=== PATIENT | male | born 1995 | race Caucasian/White ===

== ENCOUNTER 2019-12-11 03:51 | Inpatient (IN) | payer BC ==
[2019-12-11] MEDS ORDERED: SODIUM CHLORIDE 0.9% 1000ML 1,000 ML IVS ONE (04:14)
[2019-12-11] MEDS ORDERED: DEXAMETHASONE INJ 10 MG/ML VIAL IV ONE (04:14)
--- NOTE | 2019-12-11 04:19 | ED.PDOC ---
History of Present Illness - General Chief Complaint: Respiratory Problem Stated Complaint: SOB, cough, COVID + Time Seen by Provider: 12/11/19 04:10 Source: patient, RN notes reviewed, Vital Signs reviewed Exam Limitations: no limitations - History of Present Illness Initial Comments: 24 yo male with no pmh comes in with c/c of sob. Patient was diagnosed with covid 8 days ago, has been symptomatic for 11 days. Works as EMT. +cough, sob, n/v. + fever. no chest pain. past two nights has not been able to sleep due to coughing. so came in for evaluation. Timing/Duration: constant Allergies/Adverse Reactions: Allergies NO KNOWN ALLERGY Allergy (Verified 12/11/19 04:16) Review of Systems - Review of Systems Constitutional: States: fever, malaise. Denies: chills EENTM: Denies: nose congestion, throat swelling, mouth swelling Respiratory: States: cough, short of breath Cardiology: Denies: chest pain, palpitations Gastrointestinal/Abdominal: States: nausea, vomiting. Denies: abdominal pain Musculoskeletal: Denies: back pain, muscle pain, neck pain Skin: Denies: rash Neurological: Denies: headache, numbness, paresthesia, tingling, tremors, weakness Endocrine: Denies: unexplained weight gain, unexplained weight loss Hematologic/Lymphatic: Denies: easy bleeding, easy bruising Past Medical History (General) - Patient Medical History Hx Seizures: No Hx Stroke: No Hx Dementia: No Hx Asthma: No Hx of COPD: No Hx Cardiac Disorders: No Hx Congestive Heart Failure: No Hx Pacemaker: No Hx Hypertension: No Hx Thyroid Disease: No Hx Diabetes: No Hx Gastroesophageal Reflux: No Hx Renal Disease: No Hx Cancer: No Hx of HIV: No Hx Hepatitis B: No Hx Hepatitis C: No Hx MRSA: No Hx Other PMH: No - Social History Hx Tobacco Use: No Hx Alcohol Use: No Hx Substance Use: No Hx Substance Use Treatment: No Family Medical History - Family History Mother Family History: Unknown Physical Exam - Physical Exam General Appearance: Alert, Comfortable, No apparent distress, Well Developed, Well Groomed, Well Hydrated, Well Nourished Eyes, Ears, Nose, Throat Exam: PERRL/EOMI Neck: non-tender, full range of motion, supple, normal inspection Respiratory: chest non-tender, lungs clear, normal breath sounds, no respiratory distress, no accessory muscle use, other - dry hacking cough Cardiovascular/Chest: normal peripheral pulses, no edema, no gallop, no JVD, no murmur, tachycardia Peripheral Pulses: radial,right: 2+, radial,left: 2+ Gastrointestinal/Abdominal: normal bowel sounds, non tender, soft Rectal Exam: deferred Extremity: normal range of motion, non-tender, normal inspection, no pedal andra a, no calf tenderness, normal capillary refill Neurologic: no motor/sensory deficits, alert, normal mood/affect, oriented x 3 Skin Exam: normal color, warm/dry Progress - Progress Progress: 12/11/19 04:20 we will get cxr. give decadron and some fluids. ekg. when patient lies flat his oxygen drops to 85%. Will put him on oxygen. 12/11/19 04:30 EKG STAT 12/11/19 05:00 Pulse Ox, Continuous Monitoring STAT 12/11/19 05:45 ED Intent to Admit Routine 12/11/19 06:04 Hold Metformin x 48Hrs [id number] Chest w/Contrast [CT] Stat 12/12/19 05:00 Pulse Ox, Continuous Monitoring STAT 12/13/19 05:00 Pulse Ox, Continuous Monitoring STAT Laboratory Results WBC 6.3 K/mm3 (4.8-10.8) 12/11/19 04:20 RBC 5.05 M/mm3 (4.70-6.10) 12/11/19 04:20 Hgb 13.9 gm/dL (14.0-18.0) L 12/11/19 04:20 Hct 40.1 % (42.0-52.0) L 12/11/19 04:20 MCV 79.4 fl (80.0-94.0) L 12/11/19 04:20 MCH 27.5 pg (27.0-31.0) 12/11/19 04:20 MCHC 34.7 g/dL (33.0-37.0) 12/11/19 04:20 RDW 14.1 % (11.5-14.5) 12/11/19 04:20 Plt Count 155 K/mm3 (130-400) 12/11/19 04:20 MPV 9.7 fl (7.40-10.4) 12/11/19 04:20 Absolute Neuts (auto) 4.90 K/uL (1.8-6.8) 12/11/19 04:20 Absolute Lymphs (auto) 1.10 K/uL (1.0-3.4) 12/11/19 04:20 Absolute Monos (auto) 0.20 K/uL (0.2-0.8) 12/11/19 04:20 Absolute Eos (auto) 0.00 K/uL (0.0-0.4) 12/11/19 04:20 Absolute Basos (auto) 0.00 K/uL (0.0-0.1) 12/11/19 04:20 Neutrophils % 78.3 % (42.0-78.0) H 12/11/19 04:20 Lymphocytes % 18.2 % (20.0-50.0) L 12/11/19 04:20 Monocytes % 3.1 % (2.0-9.0) 12/11/19 04:20 Eosinophils % 0.0 % (1.0-5.0) L 12/11/19 04:20 Basophils % 0.4 % (0.0-2.0) 12/11/19 04:20 D-Dimer, Quantitative 463.0 ng/ml (131-400) H 12/11/19 04:20 Sodium 139 mmol/L (135-145) 12/11/19 04:20 Potassium 3.6 mmol/L (3.6-5.0) 12/11/19 04:20 Chloride 100 mmol/L (101-111) L 12/11/19 04:20 Carbon Dioxide 26 mmol/L (21-31) 12/11/19 04:20 Anion Gap 16.6 (12-18) 12/11/19 04:20 BUN 6 mg/dL (7-18) L 12/11/19 04:20 Creatinine 0.76 mg/dL (0.6-1.3) 12/11/19 04:20 BUN/Creatinine Ratio 7.9 (10-20) L 12/11/19 04:20 Random Glucose 117 mg/dL (70-105) H 12/11/19 04:20 Serum Osmolality 276.2 mOsm/L (275-295) 12/11/19 04:20 Calcium 8.2 mg/dL (8.4-10.2) L 12/11/19 04:20 Total Bilirubin 0.7 mg/dL (0.2-1.0) 12/11/19 04:20 AST 25 IU/L (10-42) 12/11/19 04:20 ALT 20 IU/L (10-60) 12/11/19 04:20 Alkaline Phosphatase 67 IU/L (42-121) 12/11/19 04:20 LD Total 298 IU/L (91-180) H 12/11/19 04:20 Creatine Kinase 98 IU/L (38-174) 12/11/19 04:20 Troponin I < 0.02 ng/mL (0.01-0.05) 12/11/19 04:20 C-Reactive Protein 7.4 mg/dL (0-1.0) H 12/11/19 04:20 Serum Total Protein 8.2 gm/dL (6.4-8.2) 12/11/19 04:20 Albumin 4.3 g/dl (3.2-5.5) 12/11/19 04:20 Globulin 3.9 gm/dL (2.3-3.5) H 12/11/19 04:20 Albumin/Globulin Ratio 1.1 (1.1-1.9) 12/11/19 04:20 - EKG/XRAY/CT EKG: Sinus, Tachy Comments: HR 117, normal intervals, no acute ischemia. XRAY: chest - bilateral hazy opacities. - Additional EKG/XRAY/Consults Time Called: 05:44 Consult/PCP: Wade Hicks Departure - Departure Clinical Impression: Hypoxemia Pneumonia Qualifiers: Pneumonia type: due to unspecified organism Laterality: bilateral Lung location: unspecified part of lung Qualified Code(s): J18.9 - Pneumonia, unspecified organism ICD-10 Supporting Text: COVID Time of Disposition: 04:57 Disposition: Admit Patient Departure Forms: ED Discharge - Pt. Copy, Patient Portal Self Enrollment Instructions: Pneumonia in Adults, Cough, Adult (DC) Decision To Admit - Decistion To Admit Decision to Admit Reason: Medical Nature Decision to Admit Date: 12/11/19 Decision to Admit Time: 05:44
[2019-12-11] MEDS ORDERED: ONDANSETRON INJ 4 MG/2 ML VIAL IV ONE (04:27)
--- NOTE | 2019-12-11 04:48 | RAD ---
EXAM: XR Chest, 1 View CLINICAL HISTORY: The patient is 24 years old and is Male; sob, covid TECHNIQUE: Single view of the chest. COMPARISON: No relevant prior studies available. FINDINGS: Lungs: Bilateral hazy pulmonary opacities, left greater than right. Pleural space: No pleural effusion or pneumothorax. Heart: The cardiac silhouette is enlarged versus artifact of AP technique. Mediastinum: Unremarkable. Bones/joints: No acute fracture visualized. Upper abdomen: No free air in the visualized upper abdomen. IMPRESSION: Bilateral hazy pulmonary opacities, left greater than right. Findings are consistent with infection. Electronically signed by: Manisha Dangelo MD 12/11/2019 4:47 AM CDT
[2019-12-11] MEDS ORDERED: PROMETHAZINE HCL INJ 12.5 MG in SODIUM CHLORIDE 0.9% 50ML 50 ML IVPB ONE (06:32)
--- NOTE | 2019-12-11 07:16 | HP ---
SUPERVISING PHYSICIAN: Jacob Perez MD CHIEF COMPLAINT: Shortness of breath. HISTORY OF PRESENT ILLNESS: This is a 24 year-old male patient who presents to the Emergency Room with shortness of breath. He was diagnosed with Covid-19 a little over a week ago and has been symptomatic for 11 days. 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 He progressed to the point where he came to the Emergency Room. his initial vital signs were temperature 97.7, heart rate 118, blood pressure 142/96, respiratory rate was 20, sitting up his oxygen saturation was 93% but supine it dropped to 85%. After he was placed on oxygen it came up to 96%. His WBCs 6.3 with hemoglobin of 13.9, hematocrit 40.1, he did have a left shift on his differential. D-dimer was 463, Electrolytes were basically within normal limits with the exception of calcium was slightly low at 8.2. LD was 298, C-reactive protein was 7.4, troponin less than 0.02. Liver functions were unremarkable. Chest x-ray showed bilateral hazy pulmonary opacities, left greater than right. Findings are consistent with infection. Chest CT showed: 1. Commonly reported imaging features of Covid-19 pneumonia are present. 2. Adenopathy as per the CT report. 3. Fatty liver, suspect hepatomegaly. 4. Mild splenomegaly. He was given some Decadron in the Emergency Room and I was called for hospital admission. PAST MEDICAL HISTORY: None. PAST SURGICAL HISTORY: None. CURRENT MEDICATIONS: No outpatient medications. ALLERGIES: NO KNOWN DRUG ALLERGIES. FAMILY HISTORY: SOCIAL HISTORY: He worked as an EMT. He drinks alcohol on a social basis. There is no tobacco or illicit drug use. REVIEW OF SYSTEMS: GENERAL: Positive for fever, chills, negative for weight changes. HEENT: Negative for sinus symptoms, ear pain, vision changes, sore throat. RESPIRATORY: Positive for coughing and shortness of breath CARDIAC: Negative for chest pain, palpitations. GI: Positive for nausea or vomiting. Negative for diarrhea, constipation, abdominal pain.. GENITOURINARY: Negative for hematuria, dysuria, polyuria. MUSCULOSKELETAL: Positive for generalized body aches. Negative for back pain.. SKIN: Negative for lesions or rashes. NEUROLOGICAL: Positive for headaches, loss of taste and smell.. Negative for seizures or weakness.. PHYSICAL EXAMINATION: VITAL SIGNS: Temperature 99.9, heart rate 92, blood pressure 127/78, respiratory rate 18, oxygen saturation 93% on one liter nasal cannula. GENERAL: This is a 24 year-old obese male who was sitting up and in no acute distress. HEENT: Normocephalic and atraumatic. Pupils are equal and reactive. Oropharynx clear. NECK: Supple without mass. CHEST: Diminished at the bases but he does have a dry, hacking cough. There is equal rise and fall of the chest with inspiration and expiration. CARDIOVASCULAR: Regular rate and rhythm. At times he is slightly tachycardiac. ABDOMEN: Soft, non-tender, nondistended. Bowel sounds are positive. EXTREMITIES: No cyanosis, clubbing, or edema. NEUROLOGIC: He is awake, alert, and oriented x3. SKIN: [place], warm and dry. Labs and films are as per the history of present illness. ASSESSMENT: 1, Covid-19 pneumnia. PLAN: The patient has been admitted to the hospital. I have initiated the pneumonia protocol including azithromycin and Rocephin. Will get Decadron as well as Remdesivir and Lovenox,, PPI for ulcer prophylaxis. I have given him Align and Guaifenesin. Will do routine Covid labs for in the morning and hopefully he will continue to improve clinically and we can discharge him in the next 72 hours. #[id number] MTDD
--- NOTE | 2019-12-11 07:24 | CT ---
EXAM: CT Chest With Intravenous Contrast CLINICAL HISTORY: The patient is 24 years old and is Male; covid, sob TECHNIQUE: Axial computed tomography images of the chest with intravenous contrast. Sagittal and coronal reformatted images were created and reviewed. This CT exam was performed using one or more of the following dose reduction techniques: automated exposure control, adjustment of the mA and/or kV according to patient size, and/or use of iterative reconstruction technique. COMPARISON: No relevant prior studies available. FINDINGS: Lungs: Peripheral and central groundglass opacities bilaterally, greater on the left. Pleural space: No pleural effusion or pneumothorax. Heart: Unremarkable. No cardiomegaly. No significant pericardial effusion. Bones/joints: Vertebral Schmorl's nodes. No acute fracture visualized. No dislocation. Soft tissues: Unremarkable. Vasculature: Unremarkable. No thoracic aortic aneurysm. Lymph nodes: There are a few enlarged anterior mediastinal lymph nodes, up to 2 cm. There is also a 2.5 cm AP window lymph node. 2.0 cm left hilar lymph node. Mildly enlarged right hilar lymph nodes. Liver: Fatty liver. Suspect hepatomegaly, though incompletely included in the evaluation. Spleen: Mild splenomegaly. IMPRESSION: 1. Commonly reported imaging features of COVID-19 pneumonia are present. Other processes such as influenza pneumonia and organizing pneumonia, as can be seen with drug toxicity and connective tissue disease, can cause a similar imaging pattern. [PneTyp] 2. Adenopathy as above. 3. Fatty liver. Suspect hepatomegaly. 4. Mild splenomegaly. Electronically signed by: Manisha Dangelo MD 12/11/2019 7:23 AM CDT
[2019-12-11] MEDS ORDERED: ONDANSETRON INJ 4 MG/2 ML VIAL IV PRN (09:28)
[2019-12-11] MEDS ORDERED: ACETAMINOPHEN 325 MG TAB PO PRN (09:28)
[2019-12-11] MEDS ORDERED: SODIUM CHLORIDE 0.9% (FLUSH) 10 ML SYG IV PRN (09:28)
[2019-12-11] MEDS ORDERED: IV SET AND CAP CHANGE INJ INJ SCH (09:30)
[2019-12-11] MEDS: cefTRIAXone SODIUM 1 GM in SODIUM CHL 0.9% 50ML MIN-BAG+ 50 ML IVPB SCH (10:56)
[2019-12-11] MEDS: AZITHROMYCIN IV 500 MG in SODIUM CHLORIDE 0.9% 250ML 250 ML IVPB SCH (10:56)
[2019-12-11] MEDS: ALBUTEROL INHALER 64 PUFF/8GM INH SCH ×3 (12:30→20:30)
[2019-12-11] MEDS ORDERED: REMDESIVIR 200 MG in SODIUM CHLORIDE 0.9% 250ML 250 ML IVPB ONE (12:43)
[2019-12-11] MEDS ORDERED: SODIUM CHL 0.9% 250ML (AVIVA) 250 ML IVPB ONE (13:45)
[2019-12-11] MEDS: BIFIDOBACTERIUM INFANTIS 4 MG CAP PO SCH (21:07)
[2019-12-11] MEDS: SODIUM CHLORIDE 0.9% (FLUSH) 10 ML SYG IV SCH (21:07)
[2019-12-11] MEDS: guaiFENesin ER TAB 600 MG TAB PO SCH (21:07)
[2019-12-11] MEDS: ENOXAPARIN SODIUM 40 MG/0.4 ML SYG SUBCU SCH (21:07)
[2019-12-12] MEDS ORDERED: PANTOPRAZOLE SODIUM IV 40 MG VIAL ONE (04:39)
[2019-12-12] MEDS: PANTOPRAZOLE SODIUM IV 40 MG VIAL IV SCH (05:41)
[2019-12-12] MEDS ORDERED: SODIUM CHLORIDE 0.9% 250ML 250 ML ONE (07:21)
[2019-12-12] MEDS ORDERED: DEXAMETHASONE INJ 10 MG/ML VIAL ONE (07:23)
--- NOTE | 2019-12-12 07:24 | RAD ---
CHEST, ONE VIEW XR CLINICAL HISTORY: covid Pneumonia COMPARISON: Chest 12/11/2019 TECHNIQUE: AP Chest. FINDINGS: There are significant parenchymal opacities throughout the left lung and to a lesser degree right lung, relatively worse. No pneumothorax or pleural fluid. The heart is normal in size. Normal cardiomediastinal contours. Unremarkable soft tissues and bones. IMPRESSION: 1. Worsening bilateral pneumonia. Electronically signed by: Kaia Sierra DO 12/12/2019 7:23 AM CDT
[2019-12-12] MEDS: guaiFENesin ER TAB 600 MG TAB PO SCH ×2 (07:40→21:20)
[2019-12-12] MEDS: BIFIDOBACTERIUM INFANTIS 4 MG CAP PO SCH ×2 (07:40→21:22)
[2019-12-12] MEDS: DEXAMETHASONE INJ 10 MG/ML VIAL IV SCH (07:40)
[2019-12-12] MEDS: cefTRIAXone SODIUM 1 GM in SODIUM CHL 0.9% 50ML MIN-BAG+ 50 ML IVPB SCH (07:41)
[2019-12-12] MEDS: SODIUM CHLORIDE 0.9% (FLUSH) 10 ML SYG IV SCH ×2 (07:42→21:20)
[2019-12-12] MEDS: REMDESIVIR 100 MG in SODIUM CHLORIDE 0.9% 250ML 250 ML IVPB SCH (07:42)
[2019-12-12] MEDS: ALBUTEROL INHALER 64 PUFF/8GM INH SCH ×4 (09:00→21:08)
[2019-12-12] MEDS: AZITHROMYCIN IV 500 MG in SODIUM CHLORIDE 0.9% 250ML 250 ML IVPB SCH (11:00)
--- NOTE | 2019-12-12 11:40 | PN ---
SUPERVISING PHYSICIAN: Jacob Perez MD DATE: 12/12/19 SUBJECTIVE: The patient is sitting up in his chair. He states he feels much better. He continues to have a dry, hacking cough, but there is no nausea or vomiting. He denies chest pain. He does get short of breath with exertion. OBJECTIVE: VITAL SIGNS: T-max 24 hours is 100, it is now 99.1. Heart rate 81, blood pressure 121/71, respiratory rate 19, O2 saturation 94% on 1 liter nasal cannula. RESPIRATORY: Diminished throughout, but otherwise clear to auscultation. CARDIAC: Regular rate and rhythm. NEUROLOGIC: Awake, alert and oriented times three. LABORATORY: WBCs 5.3, hemoglobin 12.6, hematocrit 36.4. D-dimer 306, fibrinogen 484. Electrolytes are basically within normal limits with the exception of calcium slightly low at 8.1. LD 267, C-reactive protein is 7.4. Sputum culture and gram stain are pending. Chest x-ray shows worsening bilateral pneumonia. All other labs and films have been reviewed via the EMR. ASSESSMENT: 1. COVID-19 pneumonitis. PLAN: We will continue present supportive care. There have been no changes on his medication and we will continue his steroids and antibiotics as previously ordered. I have ordered labs and chest x-ray for in the morning. Hopefully, he can be discharged in the next 24 to 48 hours with close followup with his primary care physician. #[id number] MTDD
[2019-12-12] MEDS: ENOXAPARIN SODIUM 40 MG/0.4 ML SYG SUBCU SCH (21:20)
[2019-12-13 03:16] VITALS: O2SAT 94
[2019-12-13] MEDS: PANTOPRAZOLE SODIUM IV 40 MG VIAL IV SCH (05:57)
[2019-12-13] MEDS: DEXAMETHASONE INJ 10 MG/ML VIAL IV SCH (08:31)
[2019-12-13] MEDS: BIFIDOBACTERIUM INFANTIS 4 MG CAP PO SCH (08:32)
[2019-12-13] MEDS: cefTRIAXone SODIUM 1 GM in SODIUM CHL 0.9% 50ML MIN-BAG+ 50 ML IVPB SCH (08:32)
[2019-12-13] MEDS: guaiFENesin ER TAB 600 MG TAB PO SCH (08:32)
[2019-12-13] MEDS: SODIUM CHLORIDE 0.9% (FLUSH) 10 ML SYG IV SCH (08:32)
[2019-12-13] MEDS: REMDESIVIR 100 MG in SODIUM CHLORIDE 0.9% 250ML 250 ML IVPB SCH (08:56)
[2019-12-13 10:17] VITALS: BP 130/78; TEMP 98.5
[2019-12-13] MEDS: AZITHROMYCIN IV 500 MG in SODIUM CHLORIDE 0.9% 250ML 250 ML IVPB SCH (11:18)
[2019-12-14] MEDS ORDERED: REMDESIVIR 100 MG in SODIUM CHLORIDE 0.9% 250ML 250 ML IVPB SCH (12:00)
--- NOTE | 2019-12-19 08:21 | DS ---
SUPERVISING PHYSICIAN: Jacob Perez MD ADMISSION DIAGNOSIS: Covid-19 pneumonia. DISCHARGE DIAGNOSIS: Covid-19 pneumonia. REASON FOR HOSPITALIZATION: This is a 24 year-old male patient who presents to the Emergency Room with shortness of breath. He was diagnosed with Covid-19 a little over a week ago and has been symptomatic for 11 days. 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 He progressed to the point where he came to the Emergency Room. his initial vital signs were temperature 97.7, heart rate 118, blood pressure 142/96, respiratory rate was 20, sitting up his oxygen saturation was 93% but supine it dropped to 85%. After he was placed on oxygen it came up to 96%. His WBCs 6.3 with hemoglobin of 13.9, hematocrit 40.1, he did have a left shift on his differential. D-dimer was 463, Electrolytes were basically within normal limits with the exception of calcium was slightly low at 8.2. LD was 298, C-reactive protein was 7.4, troponin less than 0.02. Liver functions were unremarkable. Chest x-ray showed bilateral hazy pulmonary opacities, left greater than right. Findings are consistent with infection. LABORATORY STUDIES: White count prior to discharge was 4,900, hemoglobin 12.8, hematocrit 38.2, differential showed to be without a left shift. Coagulation studies showed D-dimer of 403, fibrinogen 405, PTT 27. Chemistries showed normal electrolytes. Liver functions showed AST at 46, otherwise ALT and alkaline phosphatase were normal. C-reactive protein was 2.8 compared to admission of 7.4. RADIOLOGY: Final chest x-ray on 12/11 per radiology interpretation showed worsening bilateral pneumonia. HOSPITAL COURSE: Mr. Garner was admitted for Covid pneumonitis and treated with Decadron, Rocephin, azithromycin, Remdesivir and aggressive pulmonary hygiene. His labs were followed. They were showing a trend and good baseline levels and he was found to be clinically improving and was maintaining 02 saturations at time of discharge on room air of 94%, at discharge his temperature was 98.5, pulse 78, blood pressure 130/78, respirations 18. He was found to be clinically stable enough to continue with outpatient management and therefore he was discharged home. PLAN: Mr. Garner was discharged home to continue with treatment for Covid-19 with Align, azithromycin, Decadron, Guaifenesin, Cefdinir and albuterol inhalers. He is to resume his usual diet and increase his activity as tolerated. He is to followup with primary care physician. MEDICATIONS PRESCRIBED ON DISCHARGE: 1. Align 4 mg twice a day, #50. 2. Azithromycin 500 mg daily. 3. Decadron 6 mg daily, #7, no refills. 4. Guaifenesin [id number] 600 mg twice a day as needed. 5. Cefdinir 300 mg once daily, #20. 6. Albuterol inhalers 2 puffs every 4 hours as needed for shortness of breath, no refills. CONDITION ON DISCHARGE: Stable and improving. DISPOSITION: Patient is discharged home. #[id number] [facility]
== END 2019-12-13 13:25 | disposition home or self-care (01) | DRG 177 ==
LOC: ER 03:51 → MS 07:14 → OBSVTOIN 07:14
PROVIDERS: ADMIT Nurse Practitioner Acute Care; ATTEND Nurse Practitioner Family
PROC: BW241ZZ Computerized Tomography (CT Scan) of Chest and Abdomen using Low Osmolar Contrast (ICD-10-PCS; principal; 2019-12-11)
DX: U07.1 COVID-19 (principal); J12.89 Other viral pneumonia; E83.51 Hypocalcemia